=== PATIENT | male | born 1960 | race Caucasian/White ===

== ENCOUNTER 2021-05-26 09:23 | Emergency (ER) | payer MEDICARE ==
[~2021-05-26 09:23] MED LIST: ASPIRIN EC81 MG PO; BACLOFEN 10MG T10 MG PO; COREG12.5 MG PO; COUMADIN5 MG PO; COUMADIN7.5 MG PO; CRESTOR10 MG PO; ISOSORBIDE MONO60 MG PO; K-DUR20 MEQ PO; KEFLEX250 MG PO; LANOXIN250 MCG PO; LASIX40 MG PO; NITROSTAT0.4 MG PO; PRINIVIL10 MG PO; RANEXA500 MG PO
[2021-05-26 10:27] LABS: BASOPHIL 0.2 % (0-2); HGB 14.7 g/dl (13.2-18.0); LYMPHOCYTE 13.1 % (15-48); MCH 32.5 pg (25.0-31.0); MCHC 32.7 g/dL (32.0-36.0); MCV 99.3 fL (78.0-100.0); MONOCYTE 9.7 % (0-12); NEUTROPHIL 75.4 % (41-80); NRBC 0; PLT 144 K/uL (150-400); RBC 4.53 M/uL (4.70-6.00); RDW 13.6 % (11.5-14.0); WBC 10.4 K/uL (4.0-10.5)
[2021-05-26 10:47] LABS: ALBUMIN 3.4 g/dL (3.4-5.0); BILIRUBIN - TOTAL 0.3 mg/dL (0.2-1.0); BUN/CREAT RATIO (CALC) 17.2 RATIO; C-REACTIVE PROTEIN 1.7 mg/dL (<=0.90); CREATININE 1.28 mg/dL (0.67-1.17); GLOBULIN (CALCULATION) 3.8 g/dL; POTASSIUM 4.1 mmol/L (3.5-5.1); TOTAL PROTEIN 7.2 g/dL (6.4-8.2)
[2021-05-26 11:03] LABS: INFLUENZA A NAA NEGATIVE (NEGATIVE)
[2021-05-26 11:06] LABS: CORONAVIRUS 2019 SARS-COV-2 POSITIVE (NEGATIVE)
== END 2021-05-26 12:18 | disposition home or self-care (01) ==
LOC: FER 09:23
PROVIDERS: Emergency Medicine
DX: U07.1 COVID-19 (principal); I10 Essential (primary) hypertension; I25.10 Atherosclerotic heart disease of native coronary artery without angina pectoris
CPT/HCPCS: 36415; 36600; 71045; 80053; 82803; 84484; 85025; 86140; 93005; U0002

== ENCOUNTER 2021-09-04 17:07 | Emergency (ER) | payer MEDICARE ==
[2021-09-04] MEDS ORDERED: CEPHALEXIN500 M1 PO (20:19)
== END 2021-09-04 20:34 | disposition home or self-care (01) ==
LOC: FER 17:07
DX: S80.12XA Contusion of left lower leg, initial encounter (principal); I25.2 Old myocardial infarction; I48.91 Unspecified atrial fibrillation; I50.9 Heart failure, unspecified; Z79.01 Long term (current) use of anticoagulants; Z79.82 Long term (current) use of aspirin; Z23 Encounter for immunization; W22.8XXA Striking against or struck by other objects, initial encounter
CPT/HCPCS: 73590; 90471; 90715